=== PATIENT | female | born 1960 | race African-American/Black ===

== ENCOUNTER 2021-09-25 14:25 | Inpatient (IN) | payer MEDICAID ==
[~2021-09-25] VITALS: Ht 162.6 cm; Wt 80.8 kg
[~2021-09-25 14:25] MED LIST: ASPI-1497 MT; ATOR20TA65 MT; FURO40TA5 PO; LEVO137T2 MT; METO-539 MT
[2021-09-25 16:22] LABS: BASOPHILS % 0.9 % (0.0-2.0); EOSINOPHILS % 2.3 % (0.0-5.0); HEMATOCRIT. 34.8 % (36.0-48.0); HEMOGLOBIN. 11.1 g/dL (12.0-16.0); LYMPHOCYTES % 42.6 % (20.0-50.0); MEAN CORPUSCULAR VOLUME 84.5 fL (81.0-99.0); MEAN PLATELET VOLUME 8.1 fl (7.4-10.4); MONOCYTES % 11.6 % (2.0-8.0); NEUTROPHILS % 42.6 % (40.0-76.0); PLATELET 106 x1000/uL (130-400); RED BLOOD CELL COUNT 4.11 mill/uL (4.2-5.4); RED CELL DISTRIBUTION WIDTH 16.9 % (11.6-14.6)
[2021-09-25 16:26] LABS: CHLORIDE 114 mEq/L (98-107)
[2021-09-25] MEDS ORDERED: ASPIRIN 325MG EC TABLET PO ONE (17:15)
[2021-09-25 17:45] LABS: CLARITY URINE CLEAR (CLEAR); COLOR URINE DARK YELLOW (YELLOW); KETONES URINE NEGATIVE (NEGATIVE); LEUKOCYTE ESTERASE URINE 1+ (NEGATIVE); NITRITE URINE POSITIVE (NEGATIVE); OCCULT BLOOD URINE NEGATIVE (NEGATIVE); PH URINE 5.5 (4.5-8.0); PROTEIN URINE TRACE (NEGATIVE)
[2021-09-25 18:00] LABS: T4 FREE 0.91 ng/dL (0.76-1.46)
[2021-09-25] MEDS ORDERED: KETOROLAC 15MG/ML VIAL IV ONE (20:15)
[2021-09-25] MEDS ORDERED: METOPROLOL TARTRATE 50MG TABLET PO ONE (20:15)
[2021-09-25] MEDS ORDERED: CEFTRIAXONE 1 G PREMIX 50 ML IV ONE (20:15)
[2021-09-25] MEDS ORDERED: NITROGLYCERIN 0.4MG TABLET SL SL PRN (21:45)
[2021-09-25] MEDS ORDERED: ACETAMINOPHEN 325MG TABLET PO PRN (21:45)
[2021-09-25] MEDS ORDERED: GUAIFENESIN 200MG/10ML SUGAR FREE UDC PO PRN (21:45)
[2021-09-25] MEDS ORDERED: MAGNESIUM/ALUMINUM HYDROXIDE/SIMETHICONE 30ML UDC PO PRN (21:45)
[2021-09-25] MEDS ORDERED: KETOROLAC 30MG/ML VIAL IV PRN (21:45)
[2021-09-25] MEDS ORDERED: CLONIDINE 0.1MG TABLET PO PRN (21:45)
[2021-09-25] MEDS ORDERED: IPRATROPIUM/ALBUTEROL 0.5-3(2.5)MG/3ML NEB NEB PRN (21:45)
[2021-09-25] MEDS ORDERED: DOCUSATE SODIUM 100MG CAPSULE PO PRN (21:45)
[2021-09-25] MEDS ORDERED: POTASSIUM CHLORIDE 20MEQ/PACKET PO NR (21:45)
[2021-09-25] MEDS ORDERED: KCL 20MEQ/100ML PREMIX 100 ML IV NR (21:45)
[2021-09-25] MEDS ORDERED: ONDANSETRON HCL 4MG/2ML INJ IV PRN (21:45)
[2021-09-25] MEDS: DIGOXIN 125MCG TABLET PO SCH (22:45)
[2021-09-25] MEDS: FUROSEMIDE 20MG/2ML VIAL IVP SCH (22:45)
[2021-09-25] MEDS: METOPROLOL TARTRATE 25MG TABLET PO SCH (22:45)
[2021-09-25] MEDS ORDERED: IOHEXOL-300 100 ML BOTTLE ONE (23:34)
[2021-09-26 00:49] LABS: *AMPHETAMINES SCREEN URINE NEGATIVE (NEGATIVE); *BENZODIAZEPINES SCREEN URINE NEGATIVE (NEGATIVE); *COCAINE SCREEN URINE NEGATIVE (NEGATIVE); CANNABINOID URINE SCREEN PRESUMTIVE POSITIVE (NEGATIVE)
[2021-09-26 00:50] LABS: *BARBITURATES SCREEN URINE NEGATIVE (NEGATIVE); METHADONE URINE SCREEN NEGATIVE (NEGATIVE); OPIATES URINE SCREEN NEGATIVE (NEGATIVE); PHENCYCLIDINE URINE SCREEN NEGATIVE (NEGATIVE)
[2021-09-26 01:17] LABS: ETHANOL BLOOD < 10 mg/dL
[2021-09-26 01:20] LABS: TOTAL IRON BINDING CAPACITY 375 ug/dL (250-450)
[2021-09-26 01:22] LABS: CREATINE KINASE 73 IU/L (26-192)
[2021-09-26 01:24] LABS: CREATINE KINASE MB FRACTION 1.3 ng/mL (0.5-3.6)
[2021-09-26 01:35] LABS: DIGOXIN 0.2 ng/mL (0.9-2.0)
[2021-09-26 01:36] LABS: FOLIC ACID (FOLATE) SERUM 13.9 ng/mL (>5.38)
[2021-09-26 04:04] LABS: BASOPHILS % 0.7 % (0.0-2.0); EOSINOPHILS % 2.6 % (0.0-5.0); HEMATOCRIT. 36.7 % (36.0-48.0); HEMOGLOBIN. 11.6 g/dL (12.0-16.0); LYMPHOCYTES % 37.1 % (20.0-50.0); MEAN CORPUSCULAR HEMOGLOBIN 27.1 pg (28.0-32.0); MEAN CORPUSCULAR VOLUME 85.8 fL (81.0-99.0); MEAN PLATELET VOLUME 8.3 fl (7.4-10.4); MONOCYTES % 8.8 % (2.0-8.0); NEUTROPHILS % 50.8 % (40.0-76.0); PLATELET 111 x1000/uL (130-400); RED BLOOD CELL COUNT 4.27 mill/uL (4.2-5.4); RED CELL DISTRIBUTION WIDTH 16.6 % (11.6-14.6)
[2021-09-26 04:22] LABS: CHLORIDE 113 mEq/L (98-107)
[2021-09-26 04:32] LABS: LDL CHOLESTEROL 50 mg/dL (5-100)
[2021-09-26 04:33] LABS: PHOSPHORUS 3.8 mg/dL (2.5-4.9)
[2021-09-26 04:34] LABS: CREATINE KINASE MB FRACTION 1.5 ng/mL (0.5-3.6); HDL CHOLESTEROL 43 mg/dL (40-59)
[2021-09-26] MEDS: SPIRONOLACTONE 25MG TABLET PO SCH ×2 (06:00→17:59)
[2021-09-26] MEDS: APIXABAN 5 MG TABLET PO SCH ×2 (09:34→20:41)
[2021-09-26] MEDS: FAMOTIDINE 20MG TABLET PO SCH ×2 (09:34→20:42)
[2021-09-26] MEDS: ASPIRIN 325MG EC TABLET PO SCH (09:34)
[2021-09-26] MEDS: METOPROLOL TARTRATE 25MG TABLET PO SCH ×2 (09:34→20:42)
[2021-09-26] MEDS: FUROSEMIDE 20MG/2ML VIAL IVP SCH (09:48)
[2021-09-26 12:30] VITALS: BP 130/90
[2021-09-26 15:16] VITALS: BP 123/85
[2021-09-26] MEDS: DIGOXIN 125MCG TABLET PO SCH (17:59)
[2021-09-26 20:00] VITALS: BP 129/93
[2021-09-26] MEDS: FUROSEMIDE 40MG/4ML VIAL IVP SCH (20:40)
[2021-09-26] MEDS: ATORVASTATIN CALCIUM 20MG TABLET PO SCH (20:41)
[2021-09-26] MEDS: ACETAMINOPHEN 325MG TABLET PO PRN (20:41)
[2021-09-26] MEDS: ZOLPIDEM TARTRATE 5MG TABLET PO PRN (22:32)
[2021-09-27] VITALS (7 sets, daily range): BP systolic 104–125; BP diastolic 59–87
[2021-09-27] MEDS: SPIRONOLACTONE 25MG TABLET PO SCH ×2 (05:36→17:32)
[2021-09-27 07:48] LABS: BASOPHILS % 0.7 % (0.0-2.0); EOSINOPHILS % 2.7 % (0.0-5.0); HEMOGLOBIN. 10.9 g/dL (12.0-16.0); LYMPHOCYTES % 42.9 % (20.0-50.0); MEAN CORPUSCULAR HEMOGLOBIN 27.8 pg (28.0-32.0); MEAN PLATELET VOLUME 8.5 fl (7.4-10.4); MONOCYTES % 11.9 % (2.0-8.0); NEUTROPHILS % 41.8 % (40.0-76.0); PLATELET 102 x1000/uL (130-400); RED BLOOD CELL COUNT 3.93 mill/uL (4.2-5.4); RED CELL DISTRIBUTION WIDTH 16.6 % (11.6-14.6)
[2021-09-27 07:55] LABS: CHLORIDE 109 mEq/L (98-107)
[2021-09-27] MEDS: FAMOTIDINE 20MG TABLET PO SCH ×2 (09:24→20:52)
[2021-09-27] MEDS: APIXABAN 5 MG TABLET PO SCH ×2 (09:24→20:51)
[2021-09-27] MEDS: ASPIRIN 325MG EC TABLET PO SCH (09:25)
[2021-09-27] MEDS: POTASSIUM CHLORIDE 10MEQ TABLET SR PO SCH (09:25)
[2021-09-27] MEDS: FUROSEMIDE 40MG/4ML VIAL IVP SCH ×2 (10:03→20:52)
[2021-09-27] MEDS: METOPROLOL TARTRATE 25MG TABLET PO SCH ×2 (10:04→20:52)
[2021-09-27] MEDS ORDERED: REGADENOSON 0.4 MG/5 ML IV ONE (14:00)
[2021-09-27] MEDS: DIGOXIN 125MCG TABLET PO SCH (17:31)
[2021-09-27] MEDS: ACETAMINOPHEN 325MG TABLET PO PRN (19:43)
[2021-09-27] MEDS: ATORVASTATIN CALCIUM 20MG TABLET PO SCH (20:50)
[2021-09-27] MEDS: ZOLPIDEM TARTRATE 5MG TABLET PO PRN (23:14)
[2021-09-28] VITALS: BP 113/66
[2021-09-28 04:00] VITALS: BP 102/74
[2021-09-28] MEDS: SPIRONOLACTONE 25MG TABLET PO SCH ×2 (06:00→18:33)
[2021-09-28 06:53] LABS: BASOPHILS % 0.9 % (0.0-2.0); EOSINOPHILS % 2.8 % (0.0-5.0); HEMOGLOBIN. 11.7 g/dL (12.0-16.0); INR 1.1; LYMPHOCYTES % 43.9 % (20.0-50.0); MEAN CORPUSCULAR HEMOGLOBIN 27.9 pg (28.0-32.0); MEAN CORPUSCULAR VOLUME 83.6 fL (81.0-99.0); MEAN PLATELET VOLUME 8.4 fl (7.4-10.4); MONOCYTES % 12.5 % (2.0-8.0); NEUTROPHILS % 39.9 % (40.0-76.0); PARTIAL THROMBOPLASTIN TIME 33.2 sec (23.4-31.0); PLATELET 133 x1000/uL (130-400); PROTHROMBIN TIME 12.2 sec (9.6-11.0); RED BLOOD CELL COUNT 4.19 mill/uL (4.2-5.4); RED CELL DISTRIBUTION WIDTH 16.6 % (11.6-14.6)
[2021-09-28 07:02] LABS: CHLORIDE 106 mEq/L (98-107)
[2021-09-28 08:55] VITALS: BP 104/64
[2021-09-28] MEDS ORDERED: REGADENOSON 0.4 MG/5 ML IV ONE (10:09)
[2021-09-28] MEDS: FUROSEMIDE 40MG/4ML VIAL IVP SCH ×2 (10:31→21:41)
[2021-09-28] MEDS: FAMOTIDINE 20MG TABLET PO SCH ×2 (10:31→21:41)
[2021-09-28] MEDS: APIXABAN 5 MG TABLET PO SCH ×2 (10:31→21:41)
[2021-09-28] MEDS: POTASSIUM CHLORIDE 10MEQ TABLET SR PO SCH (10:31)
[2021-09-28] MEDS: ASPIRIN 325MG EC TABLET PO SCH (10:31)
[2021-09-28] MEDS: METOPROLOL TARTRATE 25MG TABLET PO SCH ×2 (10:33→21:41)
[2021-09-28 12:56] VITALS: BP 102/65
[2021-09-28] MEDS: ACETAMINOPHEN 325MG TABLET PO PRN (14:24)
[2021-09-28 15:25] VITALS: BP 102/69
[2021-09-28] MEDS: DIGOXIN 125MCG TABLET PO SCH (18:33)
[2021-09-28 20:30] VITALS: BP 99/64
[2021-09-28] MEDS: ATORVASTATIN CALCIUM 20MG TABLET PO SCH (21:41)
[2021-09-28] MEDS: ZOLPIDEM TARTRATE 5MG TABLET PO PRN (23:12)
[2021-09-29 00:22] VITALS: BP 112/70
[2021-09-29 04:30] VITALS: BP 117/57
[2021-09-29] MEDS: FUROSEMIDE 40MG/4ML VIAL IVP SCH (06:08)
[2021-09-29] MEDS: SPIRONOLACTONE 25MG TABLET PO SCH (06:09)
[2021-09-29 08:00] VITALS: BP 102/69
[2021-09-29] MEDS: METOPROLOL TARTRATE 25MG TABLET PO SCH (09:27)
[2021-09-29] MEDS: POTASSIUM CHLORIDE 10MEQ TABLET SR PO SCH (09:27)
[2021-09-29] MEDS: FAMOTIDINE 20MG TABLET PO SCH (09:27)
[2021-09-29] MEDS: APIXABAN 5 MG TABLET PO SCH (09:27)
[2021-09-29] MEDS: ASPIRIN 325MG EC TABLET PO SCH (09:27)
[2021-09-29 12:21] VITALS: BP 102/69
== END 2021-09-29 13:42 | disposition home or self-care (01) | DRG 194 ==
LOC: ER 14:25 → MICUSO 20:04 → 6WST 09-26 13:04
PROVIDERS: ADMIT Internal Medicine; ATTEND Internal Medicine
DX: I11.0 Hypertensive heart disease with heart failure (principal); E44.0 Moderate protein-calorie malnutrition; D69.6 Thrombocytopenia, unspecified; D63.8 Anemia in other chronic diseases classified elsewhere; I42.9 Cardiomyopathy, unspecified; I48.19 Other persistent atrial fibrillation; E03.9 Hypothyroidism, unspecified; I50.43 Acute on chronic combined systolic (congestive) and diastolic (congestive) heart failure; E78.5 Hyperlipidemia, unspecified; N39.0 Urinary tract infection, site not specified; R74.01 Elevation of levels of liver transaminase levels; E87.6 Hypokalemia; E78.00 Pure hypercholesterolemia, unspecified; F17.210 Nicotine dependence, cigarettes, uncomplicated; R07.89 Other chest pain; I08.1 Rheumatic disorders of both mitral and tricuspid valves; Z60.2 Problems related to living alone; F10.10 Alcohol abuse, uncomplicated; K74.60 Unspecified cirrhosis of liver; M19.90 Unspecified osteoarthritis, unspecified site; Z20.822 Contact with and (suspected) exposure to COVID-19; Z79.01 Long term (current) use of anticoagulants; Z79.899 Other long term (current) drug therapy; Z91.14 Patient's other noncompliance with medication regimen; Z91.11 Patient's noncompliance with dietary regimen; Z91.19 Patient's noncompliance with other medical treatment and regimen; Z95.0 Presence of cardiac pacemaker; Z68.30 Body mass index [BMI] 30.0-30.9, adult; Z86.19 Personal history of other infectious and parasitic diseases
CPT/HCPCS: 36415; 71045; 74177; 78452; 80048; 80053; 80061; 80162; 80305; 80320; 81003; 82550; 82553; 82607; 82746; 83036; 83540; 83550; 83735; 83880; 84100; 84132; 84439; 84443; 84481; 84484; 85025; 87077; 87186; 87426; 93005; 93017; 93970; 97162; 97166; 99285; A9500; C1893; J0696; J1885; J1940; J2785; J3480; Q9967; G0480